=== PATIENT | female | born 2000 | race Caucasian/White ===

== ENCOUNTER 2019-10-05 11:48 | Emergency (ER) | payer OTHER ==
[~2019-10-05] VITALS: Ht 160 cm; Wt 54.4 kg
[2019-10-05 12:14] VITALS: BP_SYST 117
--- NOTE | 2019-10-05 12:18 | NUR ---
PATIENT PRESENTS TO THE ER WITH HX OF NAUSEA AND EPIGASTRIC BURNING FOR THREE DAYS; NO TRAUMA, NO OTHER REMARKABLE S/S; PATIENT TO #4B AT 1200
--- NOTE | 2019-10-05 12:20 | NUR ---
Patient presentst to ER C/O of nasal pain & gastric reflux. Patient A&Ox4, BIB mother, ambulatory to ER , right nasal pain 03/16 denies N/V/D. Patient states she has nausea with meals. patient also C/o right nare nasal tenderness.
--- NOTE | 2019-10-05 12:50 | NUR ---
ER at bedside examining patient.
[2019-10-05 13:20] VITALS: BP_SYST 117
--- NOTE | 2019-10-05 13:20 | NUR ---
Patient and mother given written and verbal discharge instructions and verbalizes understanding. ER MD discussed with patient the results and treatment provided. Patient in stable condition. ID arm band removed. Rx of protonix, pepcid, oxymetazline hcl given. Patient educated on pain management and to follow up with PMD. Pain Scale 0. Opportunity for questions provided and answered. Medication side effect fact sheet provided.
== END 2019-10-05 13:20 | disposition home or self-care (01) ==
LOC: SED 11:48
DX: K21.9 Gastro-esophageal reflux disease without esophagitis (principal)
CPT/HCPCS: 99283

== ENCOUNTER 2019-12-28 08:51 | Emergency (ER) | payer OTHER ==
[~2019-12-28] VITALS: Ht 157.5 cm; Wt 54.4 kg
[2019-12-28 08:57] VITALS: BP_SYST 109
[2019-12-28 09:29] VITALS: BP_SYST 112
== END 2019-12-28 09:29 | disposition home or self-care (01) ==
LOC: SED 08:51
DX: L01.00 Impetigo, unspecified (principal)
CPT/HCPCS: 99283

== ENCOUNTER 2020-02-25 11:35 | Emergency (ER) | payer MEDICAID, OTHER ==
[~2020-02-25] VITALS: Ht 157.5 cm; Wt 54.4 kg
[2020-02-25 11:40] VITALS: BP_SYST 126
--- NOTE | 2020-02-25 11:49 | NUR ---
Patient to ER bed 03 to gown for evaluation. Side rails up.
--- NOTE | 2020-02-25 11:50 | NUR ---
Patient arrived in the ED c/o epigastric pain with nausea for the last 4 days. Denied any chest pain or shortness of breath. Denied any fevers and chills. Patient is alert and oriented x4, respirations even and unlabored, speaking in full sentences, and ambulating with a steady gait. VSS, pain level 9/10. Informed of the approximate wait time. Instructed to notify ED staff for any changes in condition or worsening of symptoms while waiting to be seen by an ED provider. Patient verbalized understanding.
--- NOTE | 2020-02-25 11:50 | NUR ---
Patient ambulated to the bathroom with a steady gait. Urine specimen collected as ordered by Dr. Stafford.
[2020-02-25] MEDS ORDERED: NACL 0.9% 1,000 ML IV ONE (11:51)
--- NOTE | 2020-02-25 11:53 | NUR ---
ER Dr. Stafford at bedside examining patient.
[2020-02-25] MEDS ORDERED: MAG HYDROX/AL HYDROX/SIMETH 30 ML, DICYCLOMINE HCL 20 MG, LIDOCAINE VISCOUS 2% 15ML (PO... PO ONE ×3 (12:00)
--- NOTE | 2020-02-25 12:08 | NUR ---
# 18 gauge angiocath placed to RAC. Use of asceptic technique. Opsite placed over site. Blood return noted. Blood for lab drawn from site. Flushed with 10 cc of normal saline. No evidence of infiltration noted. Patient tolerated well.
--- NOTE | 2020-02-25 12:21 | NUR ---
X-ray done at bedside as ordered by Dr. Stafford. Patient tolerated the procedure well.
[2020-02-25 12:30] LABS: BASOPHILS # (AUTO) 0.1 K/uL (0.0-0.2); BASOPHILS % (AUTO) 0.8 % (0.0-2.0); EOSINOPHILS # (AUTO) 0.1 K/uL (0.0-0.4); EOSINOPHILS % (AUTO) 0.9 % (0.0-4.0); HEMOGLOBIN 15.2 g/dL (12.0-16.0); LYMPHOCYTES # (AUTO) 1.1 K/uL (1.0-5.5); MEAN CORPUSCULAR HEMOGLOBIN 32 pg (27-31); MEAN CORPUSCULAR HGB CONC 34 % (32-36); MEAN CORPUSCULAR VOLUME 94 fL (79.0-98.0); MONOCYTES # (AUTO) 0.4 K/uL (0.0-1.0); MONOCYTES % (AUTO) 4.6 % (1.7-9.3); NEUTROPHILS # (AUTO) 7.2 K/uL (1.8-7.7); NEUTROPHILS % (AUTO) 81.7 % (40.0-70.0); PLATELET COUNT (AUTO) 293 K/uL (130-430); RED BLOOD CELL COUNT(AUTO) 4.77 MIL/uL (4.2-6.2); RED CELL DISTRIBUTION WIDTH 13.1 % (9.0-15.0); WHITE BLOOD COUNT (AUTO) 8.8 K/uL (4.5-11.0)
[2020-02-25 12:32] LABS: BILIRUBIN,URINE NEGATIVE (NEGATIVE); BLOOD, URINE NEGATIVE (NEGATIVE); CLARITY/URINE CLEAR (CLEAR); COLOR,URINE YELLOW (YELLOW); GLUCOSE,URINE NEGATIVE (NEGATIVE); KETONES,URINE NEGATIVE (NEGATIVE); LEUKOCYTE ESTERASE ,URINE NEGATIVE (NEGATIVE); NITRITE, URINE NEGATIVE (NEGATIVE); PROTEIN URINE NEGATIVE (NEGATIVE); UROBILINOGEN,URINE 0.2 (0.2-1.0)
[2020-02-25 12:44] LABS: CREATININE 0.85 mg/dL (0.55-1.30); POTASSIUM 3.4 mmol/L (3.5-5.1)
[2020-02-25 12:49] LABS: TOTAL BILIRUBIN 0.4 mg/dL (0.0-1.0)
[2020-02-25 14:38] VITALS: BP_SYST 126
--- NOTE | 2020-02-25 14:38 | NUR ---
ER MD discussed with the patient the results and treatment provided. Patient given written and verbal discharge instructions and verbalized understanding. Opportunity for questions provided and answered. Patient in stable condition, last set of vital signs within normal limits, pain scale 0/10, speaking in full sentences and ambulated with a steady gait upon discharge. ID arm band removed.
== END 2020-02-25 14:38 | disposition home or self-care (01) ==
LOC: SED 11:35
DX: K27.9 Peptic ulcer, site unspecified, unspecified as acute or chronic, without hemorrhage or perforation (principal); R10.13 Epigastric pain
CPT/HCPCS: 36415; 71045; 80053; 81003; 81025; 82150; 83605; 83690; 85025; 87040; 99284; J2001; J7030

== ENCOUNTER 2020-07-09 20:13 | Emergency (ER) | payer MEDICAID, OTHER ==
[~2020-07-09] VITALS: Ht 157.5 cm; Wt 54.4 kg
[2020-07-09 20:39] VITALS: BP_SYST 132
== END 2020-07-09 22:46 | disposition left against medical advice (07) ==
LOC: SED 20:13
DX: R50.9 Fever, unspecified (principal); Z53.21 Procedure and treatment not carried out due to patient leaving prior to being seen by health care provider

== ENCOUNTER 2020-09-21 16:20 | Emergency (ER) | payer MEDICAID, SELFPAY ==
[~2020-09-21] VITALS: Ht 162.6 cm; Wt 54.4 kg
[2020-09-21 16:30] VITALS: BP_SYST 143
[2020-09-21] MEDS ORDERED: ACET325T53 PO (16:45)
[2020-09-21] MEDS ORDERED: ONDA4TAB5 PO (16:45)
[2020-09-21] MEDS ORDERED: AUG875 PO (16:45)
[2020-09-21 17:08] VITALS: BP_SYST 140
[2020-09-21 17:36] LABS: BILIRUBIN,URINE NEGATIVE (NEGATIVE); BLOOD, URINE 3+ (NEGATIVE); CLARITY/URINE CLEAR (CLEAR); COLOR,URINE YELLOW (YELLOW); GLUCOSE,URINE NEGATIVE (NEGATIVE); KETONES,URINE TRACE (NEGATIVE); LEUKOCYTE ESTERASE ,URINE NEGATIVE (NEGATIVE); NITRITE, URINE NEGATIVE (NEGATIVE); PH,URINE 5.5 (5.0-8.0); PROTEIN URINE TRACE (NEGATIVE); UROBILINOGEN,URINE 0.2 (0.2-1.0)
[2020-09-21 17:48] LABS: RBC,URINE 20-50 /HPF (0-3); WBC,URINE 0-3 /HPF (0-3)
[2020-09-21 17:49] LABS: BACTERIA,URINE FEW /HPF (None Seen); MUCUS,URINE 3+ /LPF (None Seen)
== END 2020-09-21 17:09 | disposition home or self-care (01) ==
LOC: SED 16:20
DX: K08.89 Other specified disorders of teeth and supporting structures (principal); Z20.822 Contact with and (suspected) exposure to COVID-19; Z79.899 Other long term (current) drug therapy
CPT/HCPCS: 81000; 99283; U0003

== ENCOUNTER 2021-10-09 06:26 | Emergency (ER) | payer OTHER, SELFPAY ==
[~2021-10-09] VITALS: Ht 157.5 cm; Wt 54.4 kg
[~2021-10-09 06:26] MED LIST: ACET325T53 PO; AUG875 PO; ONDA4TAB5 PO
[2021-10-09 06:35] VITALS: BP_SYST 121
--- NOTE | 2021-10-09 06:35 | NUR ---
Patient to ER bed 5 to gown for evaluation. Side rails up. Report given to Mauro GOODWIN(reg).
--- NOTE | 2021-10-09 06:48 | NUR ---
ER at bedside examining patient.
[2021-10-09] MEDS ORDERED: KETOROLAC TROMETHAMINE 60 MG/2 ML VIAL IM ONE (07:00)
--- NOTE | 2021-10-09 07:02 | NUR ---
Pt C/O lower abdominal pain and vaginal bleeding No Hx NKDA Urine HCG negative AOX4 VSS NAD at this time
--- NOTE | 2021-10-09 07:03 | NUR ---
Report given to CHRISTA Whiting
[2021-10-09 08:00] LABS: BASOPHILS # (AUTO) 0.1 K/uL (0.0-0.2); BASOPHILS % (AUTO) 0.5 % (0.0-2.0); EOSINOPHILS # (AUTO) 0.1 K/uL (0.0-0.4); EOSINOPHILS % (AUTO) 0.7 % (0.0-4.0); HEMATOCRIT 38.4 % (36-48); HEMOGLOBIN 13.2 g/dL (12.0-16.0); LYMPHOCYTES # (AUTO) 0.8 K/uL (1.0-5.5); LYMPHOCYTES % (AUTO) 7.6 % (20.5-51.5); MEAN CORPUSCULAR HEMOGLOBIN 32 pg (27-31); MEAN CORPUSCULAR HGB CONC 34 % (32-36); MEAN CORPUSCULAR VOLUME 93 fL (79.0-98.0); MONOCYTES # (AUTO) 0.7 K/uL (0.0-1.0); MONOCYTES % (AUTO) 5.9 % (1.7-9.3); NEUTROPHILS # (AUTO) 9.4 K/uL (1.8-7.7); NEUTROPHILS % (AUTO) 85.3 % (40.0-70.0); PLATELET COUNT (AUTO) 273 K/uL (130-430); RED BLOOD CELL COUNT(AUTO) 4.15 MIL/uL (4.2-6.2); RED CELL DISTRIBUTION WIDTH 12.9 % (9.0-15.0); WHITE BLOOD COUNT (AUTO) 11.1 K/uL (4.8-10.8)
[2021-10-09] MEDS ORDERED: NAPR-688 PO (08:14)
[2021-10-09] MEDS ORDERED: TRAM50TA PO (08:14)
[2021-10-09] MEDS ORDERED: MEDR10TA72 PO (08:14)
[2021-10-09 08:35] VITALS: BP_SYST 108
--- NOTE | 2021-10-09 08:36 | NUR ---
Patient given written and verbal discharge instructions and verbalizes understanding. JYOTSNA ARELLANO MD discussed with patient the results and treatment provided. Patient in stable condition. ID arm band removed. Rx of NAPROXEN, PROVERA, TRAMADOL given. Patient educated on pain management and to follow up with PMD. Pain Scale 0. Opportunity for questions provided and answered. Medication side effect fact sheet provided.
== END 2021-10-09 08:36 | disposition home or self-care (01) ==
LOC: SED 06:26
DX: N93.8 Other specified abnormal uterine and vaginal bleeding (principal)
CPT/HCPCS: 36415; 81025; 85025; 96372; 99283; J1885

== ENCOUNTER 2022-01-16 17:41 | Emergency (ER) | payer MEDICAID, OTHER ==
[~2022-01-16] VITALS: Ht 157.5 cm; Wt 56.7 kg
[~2022-01-16 17:41] MED LIST changes: +MEDR10TA72 PO; +NAPR-688 PO; +TRAM50TA PO
[2022-01-16 17:59] VITALS: BP_SYST 110
--- NOTE | 2022-01-16 18:06 | NUR ---
pt. came in with c/o menstral cramps and heavier bleeding than normal, states had pain 9/10 took tylenol and now pain 4/10, has missed 2 days of work and needs a note to return, does have hx. of ovarian cyst
--- NOTE | 2022-01-16 18:38 | NUR ---
DR MARINELLI BROUGHT PT BACK TO [facility] FOR EVALUATION
--- NOTE | 2022-01-16 19:08 | NUR ---
Patient given written and verbal discharge instructions and verbalizes understanding. ER Dr. Argueta discussed with patient the results and treatment provided. Patient in stable condition. ID arm band removed. Rx of given. Patient educated on pain management and to follow up with PMD. Pain Scale 3.
[2022-01-16 19:09] VITALS: BP_SYST 115
== END 2022-01-16 19:08 | disposition home or self-care (01) ==
LOC: SED 17:41
DX: N94.6 Dysmenorrhea, unspecified (principal); R10.30 Lower abdominal pain, unspecified; R11.0 Nausea; Z79.899 Other long term (current) drug therapy
CPT/HCPCS: 99281

== ENCOUNTER 2022-06-11 18:04 | Emergency (ER) | payer OTHER ==
[~2022-06-11] VITALS: Ht 160 cm; Wt 59.0 kg
--- NOTE | 2022-06-11 20:26 | NUR ---
DR. TORRES AT BEDSIDE SPEAKING TO PATIENT.
--- NOTE | 2022-06-11 20:35 | NUR ---
Patient given written and verbal discharge instructions and verbalizes understanding. ER MD discussed with patient the results and treatment provided. Patient in stable condition. ID arm band removed. IV catheter removed intact and dressing applied, no active bleeding. Rx of N/A given. Patient educated on pain management and to follow up with PMD. Pain Scale . Opportunity for questions provided and answered. Medication side effect fact sheet provided.
== END 2022-06-11 20:34 | disposition home or self-care (01) ==
LOC: SED 18:04
DX: K21.9 Gastro-esophageal reflux disease without esophagitis (principal); Z00.8 Encounter for other general examination; Z79.899 Other long term (current) drug therapy
CPT/HCPCS: 99281

== ENCOUNTER 2022-09-22 22:55 | Emergency (ER) | payer OTHER ==
[~2022-09-22] VITALS: Ht 157.5 cm; Wt 54.4 kg
[2022-09-22 23:05] VITALS: BP_SYST 114
[2022-09-23] MEDS ORDERED: BACI15OI13 TP (01:04)
[2022-09-23] MEDS ORDERED: ACET-2634 PO (01:04)
[2022-09-23] MEDS ORDERED: ACETAMINOPHEN 500 MG TABLET PO ONE (01:15)
[2022-09-23] MEDS ORDERED: SILVER SULFADIAZINE 1%, 25 GM TOPICAL CREAM (SSD) TP ONE (01:15)
[2022-09-23 01:30] VITALS: BP_SYST 114
== END 2022-09-23 01:30 | disposition home or self-care (01) ==
LOC: SED 22:55
DX: T23.201A Burn of second degree of right hand, unspecified site, initial encounter (principal); K21.9 Gastro-esophageal reflux disease without esophagitis; Z79.899 Other long term (current) drug therapy; X08.8XXA Exposure to other specified smoke, fire and flames, initial encounter; Y93.89 Activity, other specified; Y92.89 Other specified places as the place of occurrence of the external cause; Y99.8 Other external cause status
CPT/HCPCS: 99283